=== PATIENT | female | born 1955 | race Caucasian/White ===

== ENCOUNTER → 2021-04-05 | Outpatient (CLI) | payer MEDICARE ==
--- NOTE | 2021-04-05 14:50 | REP ---
INDICATION: F17.210 NICOTINE DEPEND. COMPARISON: None. TECHNIQUE: Axial noncontrast images from the thoracic inlet to the upper abdomen using low-dose lung screening technique (LDCT). As per the protocol only lung window images were sent to the read station for interpretation FINDINGS: There is biapical pleuroparenchymal scarring left greater than right. There is a 4 mm size nodule in the right upper lobe. There is an irregular calcified granuloma in the right lower lobe. This has Hounsfield unit density readings greater than 225. This measures 7 mm. There is a 6 mm size nodule in left lower lobe. Grossly, the mediastinum and pulmonary florence are within normal limits. Grossly, the imaged upper abdomen and imaged osseous structures are within normal limits. IMPRESSION: Multiple pulmonary nodules as described above. According to the revised Fleischner society criteria lung rads category 3. Six-month follow-up chest CT is recommended. <Electronically signed by Luther Brownlee > 04/05/21 [id number]
== END ==
LOC: M RAD 11:00
PROVIDERS: ATTEND Internal Medicine
DX: R91.8 Other nonspecific abnormal finding of lung field (principal); F17.210 Nicotine dependence, cigarettes, uncomplicated

== ENCOUNTER → 2021-10-12 | Outpatient (CLI) | payer MEDICARE | LOC: M WHC 09:18 | PROVIDERS: ATTEND Internal Medicine | DX: Z12.31 Encounter for screening mammogram for malignant neoplasm of breast (principal); Z78.0 Asymptomatic menopausal state ==

== ENCOUNTER → 2021-10-19 | Outpatient (CLI) | payer MEDICARE | LOC: M PLAIMG 09:36 | PROVIDERS: ATTEND Internal Medicine Pulmonary Disease | DX: R91.8 Other nonspecific abnormal finding of lung field (principal) ==

== ENCOUNTER → 2022-01-12 | Outpatient (REF) | payer MEDICARE | LOC: M LAB REF 12:11 | PROVIDERS: ATTEND Internal Medicine | DX: R19.7 Diarrhea, unspecified (principal) ==

== ENCOUNTER → 2022-12-29 | Outpatient (CLI) | payer MEDICARE | LOC: M RAD 09:25 | PROVIDERS: ATTEND Internal Medicine Pulmonary Disease | DX: F17.218 Nicotine dependence, cigarettes, with other nicotine-induced disorders (principal) ==